=== PATIENT | male | born 1995 | race Caucasian/White ===

== ENCOUNTER 2018-02-07 19:51 | Emergency (ER) | payer BC ==
[2018-02-07] MEDS ORDERED: Adacel (T-DAP) 0.5 ML VIAL ONE (21:19)
== END 2018-02-07 21:58 | disposition home or self-care (01) ==
LOC: ERS 19:51
DX: S91.052A Open bite, left ankle, initial encounter (principal); F17.200 Nicotine dependence, unspecified, uncomplicated; W54.0XXA Bitten by dog, initial encounter
CPT/HCPCS: 90471; 90715

== ENCOUNTER 2020-01-19 17:22 | Emergency (ER) | payer BC, OTHER ==
[2020-01-19] MEDS ORDERED: Lidocaine 1% (PF) 30 ML VIAL ONE (17:36)
[2020-01-19] MEDS ORDERED: Bacitracin 1 PK ONE ×2 (18:12→18:15)
== END 2020-01-19 18:15 | disposition home or self-care (01) ==
LOC: ERS 17:22
DX: S61.012A Laceration without foreign body of left thumb without damage to nail, initial encounter (principal); F17.200 Nicotine dependence, unspecified, uncomplicated; W26.0XXA Contact with knife, initial encounter
CPT/HCPCS: 12001; J2001